=== PATIENT | male | born 1970 | race Caucasian/White ===

== ENCOUNTER 2018-10-13 07:39 | Emergency (ER) | payer OTHER ==
--- NOTE | 2018-10-13 09:26 | RAD ---
3 VIEWS LEFT FOOT: Date: 10/13/18 COMPARISON: None. HISTORY: Pain in the third metatarsal after a kickboxing injury. FINDINGS: Three views of the left foot show no evidence of acute fracture or dislocation. Mild soft tissue swel ling is seen. There are mild degenerative changes in the ankle joint. IMPRESSION: No evidence of acute osseous abnormality. POS: [facility]
== END 2018-10-13 09:55 | disposition home or self-care (01) ==
LOC: MADERS 07:39
DX: S90.32XA Contusion of left foot, initial encounter (principal); F17.210 Nicotine dependence, cigarettes, uncomplicated; Z79.899 Other long term (current) drug therapy; Y04.0XXA Assault by unarmed brawl or fight, initial encounter; Y93.71 Activity, boxing

== ENCOUNTER 2019-10-08 12:46 | Emergency (ER) | payer OTHER, SELFPAY | END 2019-10-08 14:00 | disposition home or self-care (01) | LOC: MADERS 12:46 | DX: J10.1 Influenza due to other identified influenza virus with other respiratory manifestations (principal); F17.210 Nicotine dependence, cigarettes, uncomplicated | CPT/HCPCS: 87804; 99283 ==